=== PATIENT | male | born 1955 | race Caucasian/White ===

== ENCOUNTER 2021-03-12 08:33 | Inpatient (IN) | payer OTHER, MEDICAID, SELFPAY ==
[~2021-03-12] VITALS: Ht 182.9 cm; Wt 104.3 kg
[2021-03-12 08:45] VITALS: BP 119/77
--- NOTE | 2021-03-12 08:54 | NUR ---
pt placed in wheelchair, seatbelt on near chb
--- NOTE | 2021-03-12 08:57 | NUR ---
65 y/o male biba from home, aa&ox4 gcs15, pt states this morning at 0600 he had syncope episode. states he fell and hit his mouth. no oral injuries. also states he is waiting on covid swab results, states he was having sob, low grade fever 99.6 and non productive cough. denies anyone sick at home at this time. approx 2cm of bruising on mandible and reddened on right side of forehead. denies n/v/d. denies dysuria, hematuria, urinary retention or frequency. skin is pink/warm/dry. aa&ox4 with even and steady gait. lungs clear bl. hr even and regular, cap refill <3, no edema present at this time. pt denies any fever, cp at this time. patient states pain is 0/10 at this time. ermd made aware of pt status. pmh: denies med: ibuprofen 400mg nka
--- NOTE | 2021-03-12 09:36 | NUR ---
sissy swabbed at this time
[2021-03-12 10:21] LABS: BASOPHILS % (AUTO) 0.5 % (0.0-2.0); HEMATOCRIT 44.4 % (36-52); LYMPHOCYTES # (AUTO) 0.7 K/uL (2.0-11.5); LYMPHOCYTES % (AUTO) 14.9 % (20.5-51.1); MEAN CORPUSCULAR HEMOGLOBIN 31 pg (27-31); MEAN CORPUSCULAR HGB CONC 34 g/dL (33-37); MEAN CORPUSCULAR VOLUME 92.4 fL (80-94); MONOCYTES # (AUTO) 0.5 K/uL (0.8-1.0); MONOCYTES % (AUTO) 10.3 % (1.7-9.3); NEUTROPHILS # (AUTO) 3.6 K/uL (1.8-7.7); NEUTROPHILS % (AUTO) 74.3 % (42.2-75.2); PLATELET COUNT (AUTO) 147 K/uL (140-450); RED BLOOD CELL COUNT(AUTO) 4.81 MIL/uL (4.20-6.10); RED CELL DISTRIBUTION WIDTH 13.9 % (11.6-13.7); WHITE BLOOD COUNT (AUTO) 4.9 K/uL (4.8-10.8)
[2021-03-12 10:43] LABS: ANION GAP 15.4 (8-16); CARBON DIOXIDE 23.8 mmol/L (21-32); CREATININE 1.4 mg/dL (0.6-1.3); POTASSIUM 4.2 mmol/L (3.5-5.1)
--- NOTE | 2021-03-12 11:21 | NUR ---
mona daughter was contacted, unable to confirm of pt at this time. [phone]
--- NOTE | 2021-03-12 13:31 | NUR ---
PT W/C ASSISTED TO ER BED 8
--- NOTE | 2021-03-12 14:17 | NUR ---
Patient appears to be resting comfortably in bed. Vital Signs within normal limits. Respirations even and unlabored. Call light in reach
--- NOTE | 2021-03-12 18:58 | NUR ---
Patient appears to be resting comfortably in bed. Vital Signs within normal limits. Respirations even and unlabored. Safety precautions in place. Food provided per request. Call light in reach.
--- NOTE | 2021-03-12 20:06 | NUR ---
Pt report given to NICHOL FARIAS. Transfer of care at this time.
--- NOTE | 2021-03-12 21:50 | NUR ---
PT IN BED AWAKE W HOB ELEVATED. BED LOCKED IN LOWEST POSITION W X2 SIDERAILS UP FOR PT SAFETY. PT REPORTS SLIGHT CONGESTION, AND FEELING TIRED, + MILD DIZZYNESS. PT DENIES SOB, REPORTS FEELING MUCH BETTER THAN WHEN SYMPTOMS BEGAN. PT REPORTS NECK/BACK PAIN ONGOING BUT OK WHEN STRETCHED OUT, PT DOES NOT WANT PAIN MEDICATION. PT VSS. BREATHING EVEN AND UNLABORED. PT CONNECTED TO MONITOR. WILL CONTINUE TO MONITOR.
--- NOTE | 2021-03-12 22:01 | NUR ---
PT AMBULATED TO BATHROOM W STEADY GAIT.
--- NOTE | 2021-03-13 00:43 | NUR ---
PT APPEARS TO BE RESTING W EYES CLOSED IN SUPINE POSITION W BREATHING EVEN AND UNLABORED. VSS. NAD NOTED, WILL CONTINUE TO MONITOR. BED LOCKED IN LOWEST POSITION, HOB SLIGHTLY ELEVATED.
--- NOTE | 2021-03-13 04:20 | NUR ---
PT AMBULATED TO BATHOM W STEADY GAIT. C/O OF MILD DIZZYNESS, AND NAUSEA. NO SOB VSS. PT DOES NOT WANT PAIN OR NAUSEA MEDICATIONS AT THIS TIME.
--- NOTE | 2021-03-13 04:50 | NUR ---
PT C/O OF ONGOING NAUSEA. MD MCCAULEY MADE AWARE, AWAITING ORDER.
[2021-03-13] MEDS ORDERED: ONDANSETRON 4 MG/2 ML VIAL IVP PRN (04:55)
[2021-03-13] MEDS ORDERED: HYDROcodone/APAP 5/325 MG 1 TAB TAB PO PRN (04:55)
[2021-03-13] MEDS ORDERED: MORPHINE SULFATE 2 MG/ML SYR IVP PRN (04:55)
--- NOTE | 2021-03-13 04:57 | NUR ---
SPOKE W IN REGARDS TO PT NAUSEA. NEW ORDERS RECEIVED FOR NAUSEA, AND PAIN PRN.
--- NOTE | 2021-03-13 07:32 | NUR ---
Pt report given to NICHOL GALLEGO. Transfer of care at this time.
--- NOTE | 2021-03-13 07:40 | NUR ---
RECEIVED PT IN [facility] AOX4. DENIES PAIN OR DISCOMFORT. NSR ON MONITOR. IV INTACT AND PATENT. SL. PENDING TELE ADMISSION. NAD. SAFETY MAINTAINED.
[2021-03-13 09:54] LABS: BASOPHILS % (AUTO) 0.2 % (0.0-2.0); HEMATOCRIT 43.5 % (36-52); HEMOGLOBIN 14.5 g/dL (12.0-18.0); LYMPHOCYTES # (AUTO) 0.8 K/uL (2.0-11.5); MEAN CORPUSCULAR HEMOGLOBIN 31 pg (27-31); MEAN CORPUSCULAR HGB CONC 33 g/dL (33-37); MEAN CORPUSCULAR VOLUME 93.1 fL (80-94); MONOCYTES # (AUTO) 0.6 K/uL (0.8-1.0); MONOCYTES % (AUTO) 12.9 % (1.7-9.3); NEUTROPHILS # (AUTO) 3.5 K/uL (1.8-7.7); NEUTROPHILS % (AUTO) 69.9 % (42.2-75.2); PLATELET COUNT (AUTO) 153 K/uL (140-450); RED BLOOD CELL COUNT(AUTO) 4.68 MIL/uL (4.20-6.10); RED CELL DISTRIBUTION WIDTH 13.9 % (11.6-13.7)
--- NOTE | 2021-03-13 10:01 | NUR ---
PT MOVED TO BED 13
--- NOTE | 2021-03-13 10:05 | NUR ---
ASSUMED CARE OF PATIENT AT THIS TIME.
--- NOTE | 2021-03-13 10:30 | NUR ---
SPOKE WITH PATIENTS DAUGHTER LENNY WITH AN UPDATE.
[2021-03-13 10:35] LABS: ANION GAP 11.6 (8-16); CREATININE 1.2 mg/dL (0.6-1.3); POTASSIUM 4.6 mmol/L (3.5-5.1)
--- NOTE | 2021-03-13 10:43 | NUR ---
PT MOVED TO ER BED 13
--- NOTE | 2021-03-13 11:10 | NUR ---
DR. MCCAULEY BEDSIDE SPEAKING WITH PATIENT
[2021-03-13] MEDS ORDERED: POTASSIUM CHLORIDE 10 MEQ TABER PO PRN (11:50)
[2021-03-13] MEDS ORDERED: MAG SULF 2000 MG/WATER PREMIX 50 ML IV PRN (11:50)
[2021-03-13] MEDS ORDERED: MECLIZINE 25 MG TAB PO PRN (11:50)
[2021-03-13] MEDS ORDERED: ACETAMINOPHEN 325 MG TAB PO PRN (11:55)
[2021-03-13] MEDS ORDERED: NACL 0.9% 1,000 ML IV SCH (11:55)
[2021-03-13] MEDS ORDERED: DOCUSATE SODIUM 100 MG GELCAP PO PRN (11:55)
[2021-03-13] MEDS ORDERED: ZOLPIDEM 5 MG TAB PO PRN (11:55)
[2021-03-13] MEDS ORDERED: ONDANSETRON 4 MG/2 ML VIAL IM/IVP PRN (11:55)
[2021-03-13] MEDS ORDERED: LORazepam 2 MG/ML VIAL IM/IVP PRN (11:55)
--- NOTE | 2021-03-13 12:25 | NUR ---
PATIENT TAKEN TO ULTRASOUND VIA GURNEY
[2021-03-13 14:58] LABS: PROTHROMBIN TIME 10.4 secs (10.8-13.4)
--- NOTE | 2021-03-13 15:01 | NUR ---
PHYSICAL THERAPY BEDSIDE FOR PATIENT EVALUATION
[2021-03-13 15:06] LABS: POTASSIUM 4.4 mmol/L (3.5-5.1)
--- NOTE | 2021-03-13 15:12 | NUR ---
PATIENT HAS BEEN SCREENED AND CATEGORIZED LOW NUTRITION RISK. PATIENT WILL BE SEEN WITHIN 7 DAYS OF ADMISSION. 03/19/[address]
[2021-03-13 15:17] LABS: ALBUMIN 3.2 g/dL (3.4-5.0); ANION GAP 12.4 (8-16); CREATININE 1.3 mg/dL (0.6-1.3); TOTAL BILIRUBIN 0.3 mg/dL (0.0-1.0)
--- NOTE | 2021-03-13 17:15 | NUR ---
PATIENT LYING IN BED WITH EYES CLOSED, PROVIDED AN EXTRA BLANKET AND PILLOW FOR COMFORT. PATIENT ON BEDSIDE GROUND CREWMAN, ALL NEEDS MET AT THIS TIME. WILL CONTINUE TO MONITOR.
[2021-03-13] MEDS ORDERED: DOCU-299 PO (17:39)
[2021-03-13] MEDS ORDERED: MECL-231 PO (17:39)
[2021-03-13 17:57] VITALS: BP 130/71
--- NOTE | 2021-03-13 18:00 | NUR ---
Estuardo coopermi in [facility] - 03/13/21 at 1816 by FARZANA SPOKE WITH PATIENTS DAUGHTER LENNY, INFORMED HER PATIENT IS UP FOR D/C. STATES SHE WILL PICK HIM UP, PATIENT D/C AND AWAITING DAUGHTER IN [facility].
--- NOTE | 2021-03-13 18:00 | NUR ---
SPOKE WITH PATIENTS DAUGHTER LENNY, INFORMED HER PATIENT IS UP FOR D/C. STATES SHE WILL PICK HIM UP, PATIENT D/C AND AWAITING DAUGHTER IN [place].
--- NOTE | 2021-03-13 18:15 | NUR ---
Note addison in ED - 03/13/21 at 1816 by FARZANA Patient discharged with v/s stable. Written and verbal after care instructions given and explained. Patient verbalized understanding. Ambulatory with steady gait. All questions addressed prior to discharge. Advised to follow up with PMD.
[2021-03-13 19:14] LABS: CHOL/HDL RATIO 4.1 (1-4.5); THYROID STIMULATING HORMONE 1.63 uIU/mL (0.34-3.74)
== END 2021-03-13 18:15 | disposition home or self-care (01) | DRG 73 ==
LOC: MED 08:33 → MTU 15:57
DX: G90.8 Other disorders of autonomic nervous system (principal); N17.0 Acute kidney failure with tubular necrosis; E86.0 Dehydration; J32.9 Chronic sinusitis, unspecified; I08.1 Rheumatic disorders of both mitral and tricuspid valves; Z20.822 Contact with and (suspected) exposure to COVID-19
CPT/HCPCS: 36415; 70450; 71045; 72125; 80048; 80053; 82150; 83036; 83690; 83880; 84134; 84443; 84484; 85025; 85610; 85730; 93005; 93880; J2405; Q0092